=== PATIENT | female | born 1945 | race Caucasian/White ===

== ENCOUNTER 2017-02-18 06:57 | Emergency (ER) | payer OTHER ==
[2017-02-18] MEDS ORDERED: ZOFRAN INJ 4 MG VIAL ONE (07:00)
[2017-02-18] MEDS ORDERED: ZOFRAN INJ 4 MG VIAL IVP ONE (07:02)
[2017-02-18] MEDS ORDERED: ASPIRIN 81 MG CHEWTAB ONE (07:08)
[2017-02-18] MEDS ORDERED: ASPIRIN 81 MG CHEWTAB PO ONE (07:10)
[2017-02-18 07:15] VITALS: BP 140/65; BMI 22.4
--- NOTE | 2017-02-18 07:29 | DR.GENAD ---
HPI - PCP Primary Care Physician: DR. SU - Complaint/Symptoms Chief Complaint Doctors Comments: Patient complains of xiphoid and epigastric cramps and discomfort for the past three hours getting worst. States she is having something like a cramp in the upper abdomen and chest that feels dull that comes and goes. States she had a cardiac cath a few years ago before she had her gall bladder surgery and they said it was fine done by Dr. Belcher. She has a non productive cough but denies fever, chills, nausea or vomiting. She denies tobacco or alcohol usage. She denies any recent trauma. states she had similar pains like this few years ago and they told her its was due to gas. States she took Prilosec earlier but it did not help. She is having problems with her food sticking when she eat. States she is not hurting presently. Chief Complaint:: "I HAVE CHEST PAIN BUT I THINK IT'S GAS PAIN." Self Treatment fo Chief Complaint: ASA 81 MG, PRILOSCE - Nurses notes reviewed Nurses Notes Review: Yes - Source History Provided: Patient - Mode of Arrival Mode of Arrival: Ambulatory - Timing Onset of Chief Complaint: 02/18/17 Came on: Suddenly - Duration Duration: Intermittent How lon Duration: Hours - Location Location: epigastric and xiphoid area - Modifying Factors Worsens:: nothing Improves:: nothing PMH - PMH Past Medical History: Yes Past Medical History: GERD, Hyperthyroidism Past Medical History Comment: THYROID Past Surgical History: Yes Surgical History: Cholecystectomy, Hysterectomy - Family History History of Family Medical Conditions: Yes Family Medical History: Diabetes Mellitus, Cancer, Coronary Artery Disease, Hypertension - Social History Does patient currently use any type of tobacco product: No Have you used tobacco products in the last 12 months: No Type of Tobacco Use: None Does any household member use tobacco: No Alcohol Use: None Do you use any recreational Drugs:: No Lives With: Family Lives Where: Home - infectious screening In the last 2 months have you had wt loss of >10#?: NO Have you had fever, night sweats or hemotysis?: No Have you traveled outside the country in the last 6 months?: No ROS - Review of Systems Constitutional: No Symptoms Reported. negative: See HPI, Chills, Diaphoresis, Fever, Malaise, Weakness, Irritable, Fatigue, Loss of Appetite, Other Eyes: No Symptoms Reported ENTM: No Symptoms Reported, Nose Discharge, Nose Congestion Respiratoy: No Symptoms Reported, Non-Productive Cough. negative: See HPI, Productive Cough, Moist Cough, Dry Cough, Hacking Cough, Barking Cough, Brassy Cough, Orthopnea, Short of Breath, Stridor, Wheezing, Hemoptysis, Other Cardiovascular: No Symptoms Reported, Chest Pain. negative: See HPI, Edema, Palpitations, Syncope, Cyanosis, Skin Mottling, Other Gastrointestinal/Abdominal: No Symptoms Reported, Abdominal Pain, Nausea. negative: See HPI, Constipation, Diarrhea, Vomiting, Food Intolerance, Other Genitourinary: No Symptoms Reported Neurological: No Symptoms Reported Musculoskeletal: No Symptoms Reported Integumentary: No Symptoms Reported Endocrine: No Symptoms Reported. negative: See HPI, Excessive Sweating, Flushing, Intolerance to Cold, Intolerance to Heat, Increased Hunger, Increased Thirst, Increased Urine, Unexplained Weight Gain, Unexplained Weight Loss, Failure to Thrive, Decreased Appetite, Other Psychiatric: No Symptoms Reported PE - Vital Signs Vitals: Temperature 98.6 F Pulse Rate 61 Respiratory Rate 20 Blood Pressure 140/65 O2 Sat by Pulse Oximetry 100 - General Limitations: No Limitations General Appearance: Alert, In No Apparent Distress - Head Head Exam: Normal Inspection, Atraumatic, Normocephalic - Eyes Eye exam: Normal Appearance, PERRL, EOMI. negative: Scleral Icterus, Conjunctival Injection, Nystagmus, Miosis, Mydrasis, Periorbital Swelling, Periorbital Tenderness, Other - ENT ENT Exam: Normal Exam, Normal Oropharynx, Normal External Ear Exam, Mucous Membranes Moist, TM's Normal Bilaterally External Ear Exam: Normal External Inspection TM/Canal Exam: Bilateral Normal Nose Exam: Normal Nose Exam Mouth Exam: Normal Inspection. negative: Drooling, Trismus, Lip Swelling, Tongue Elevation, Tongue Swelling, Laceration, Other Throat Exam: Normal Inspection. negative: Tonsillar Erythema, Tonsillomegaly, Tonsillar Exudate, R Peritonsillar Mass, L Peritonsillar Mass, Muffled Voice, Other - Neck Neck Exam: Normal Inspection, Full ROM, Trachea Midline. negative: Tenderness, Meningismus, Lymphadenopathy, Thyromegaly, Other - Chest Chest Inspection: Normal Inspection, Symmetric Chest Wall Rise - Respiratory Respiratory Exam: Normal Lung Sounds Bilat Respiratory Exam: Bilateral Clear to Auscultation - Cardiovascular Cardiovascular Exam: Regular Rate, Normal Rhythm, Normal Heart Sounds. negative : Bradycardia, Tachycardia, Irregular Rhythm, Systolic Murmur, Diastolic Murmur , Rubs, Gallop, Clicks, JVD, +S1, +S2, +S3, +S4, Other - Abdominal Exam Abdominal Exam: Normal Inspection, Normal Bowel Sounds, Soft, Tenderness ( slight epigastric tenderness), Dimnished Bowel Sounds. negative: Distention, Guarding, Rebound, Rigidity, Hyperactive Bowel Sounds, Hypoactive Bowel Sounds, Organomegaly, Trauma, Incision, Ascites, Mass, Bruit, Pulsatile Mass, Hernia, Other Abdominal Tenderness: Epigastrium, Mild - Extremities Extremities Exam: Normal Inspection, Full ROM, Normal Capillary Refill. negative: Tenderness, Edema, Joint Swelling, Calf Tenderness, Other - Back Back Exam: Normal Inspection, Full ROM. negative: Tenderness, (R) CVA Tenderness, (L) CVA Tenderness, Muscle Spasm, Paraspinal Tenderness, Vertebral Tenderness, Rashes, (R) Sciatic Notch Tenderness, (L) Sciatic Notch Tendern, (R ) Straight Leg Raise, (L) Straight Leg Raise, Other - Neurologic Neurological Exam: Alert, Oriented X3, CN II-XII Intact, Reflexes Normal. negative: Normal Gait (gait not tested) - Psychiatric Psychiatric Exam: Normal Affect, Normal Mood - Skin Skin Exam: Warm, Dry, Intact, Normal Color ROR - Labs Reviewed Laboratory Results Reviewed?: Yes (all labs and x-ray results reviewed and discussed with patient) Result Diagrams: 02/18/17 07:00 02/18/17 07:00 Laboratory: WBC 9.2 X10^3/uL (3.6-10.0) 02/18/17 07:00 RBC 4.15 X10^6/uL (3.5-5.4) 02/18/17 07:00 Hgb 11.8 g/dL (12.0-16.0) L 02/18/17 07:00 Hct 35.7 % (36.0-47.0) L 02/18/17 07:00 MCV 86.1 fL (80.0-100.0) 02/18/17 07:00 MCH 28.3 pg (27.0-34.0) 02/18/17 07:00 MCHC 32.9 g/dL (33.0-35.0) L 02/18/17 07:00 RDW 15.7 % (11.6-16.5) 02/18/17 07:00 Plt Count 315 X10^3/uL (150.0-450.0) 02/18/17 07:00 MPV 7.4 fL (7.4-11.0) 02/18/17 07:00 Neut % 57.4 % (42.0-75.0) 02/18/17 07:00 Lymph % 26.2 % (21.0-51.0) 02/18/17 07:00 Nye % 8.0 % (0.0-13.0) 02/18/17 07:00 Eos % 7.4 % (0.9-2.9) H 02/18/17 07:00 Baso % 1.0 % (0.2-1.0) 02/18/17 07:00 Neut # 5.3 x10^3/uL (2.2-4.8) H 02/18/17 07:00 Lymph # 2.4 X10^3/uL (1.3-2.9) 02/18/17 07:00 Nye # 0.7 x10^3/uL (0.3-0.8) 02/18/17 07:00 Eos # 0.7 x10^3/uL (0.0-0.2) H 02/18/17 07:00 Baso # 0.1 X10^3/uL (0.0-0.1) 02/18/17 07:00 Absolute Nucleated RBC 0.0 /100WBC 02/18/17 07:00 INR Target Range - 02/18/17 07:00 INR 1.01 (0.8-1.3) 02/18/17 07:00 PTT 25.8 SECONDS (22.9-36.5) 02/18/17 07:00 PTT Comment - 02/18/17 07:00 D-Dimer 266 ng/mL (0-400) 02/18/17 07:00 Sodium 138 mmol/L (136-145) 02/18/17 07:00 Corrected Sodium TNP 02/18/17 07:00 Potassium 3.7 mmol/L (3.5-5.1) 02/18/17 07:00 Chloride 103 mmol/L (98-107) 02/18/17 07:00 Carbon Dioxide 25.8 mmol/L (21-32) 02/18/17 07:00 BUN 16 mg/dL (7-18) 02/18/17 07:00 Creatinine 0.82 mg/dL (0.55-1.02) 02/18/17 07:00 Est GFR (MDRD) Af Amer > 60 (>60) 02/18/17 07:00 Est GFR (MDRD) Non-Af > 60 (>60) 02/18/17 07:00 Glucose 100 mg/dL (65-99) H 02/18/17 07:00 Calcium 9.6 mg/dL (8.5-10.1) 02/18/17 07:00 Total Bilirubin 0.40 mg/dL (0.2-1.0) 02/18/17 07:00 AST 57 Units/L (15-37) H 02/18/17 07:00 ALT 35 Units/L (12-78) 02/18/17 07:00 Alkaline Phosphatase 69 Units/L (46-116) 02/18/17 07:00 Creatine Kinase 113 Units/L (26-192) 02/18/17 07:00 CK-MB (CK-2) 1.3 ng/mL (0-4.0) 02/18/17 07:00 CK/CKMB % Calc 1.2 % (<4) 02/18/17 07:00 Troponin I 0.06 ng/mL (0-1.5) 02/18/17 07:00 Total Protein 7.4 g/dL (6.4-8.2) 02/18/17 07:00 Amylase 136 Units/L (25-115) H 02/18/17 07:00 H. pylori IgG Antibody Negative (NEGATIVE) 02/18/17 07:00 - XRAY XRAY Interpreted by: Radiologist (CXR: Cardiomegaly without acute cardiopulmonary process observed.) - EKG Rate: 55 [place]: Normal Rhythm: NSR Block: None Hypertrophy: None ST: Normal, Nonsp (poor r-wave progression) - Diagnosis Discharge Problem: Chest pain, Dyspepsia, Cardiomegaly, prob pancreatitis - Discharge Plan Disposition: 01 HOME, SELF-CARE Condition: Stable - Follow ups/Referrals Follow ups/Referrals: BHANU SU [Primary Care Provider] - 3 days - Instructions Instructions: Peptic Ulcer, [id number], Chest Pain Observation, Anemia, Nonspecific, Hyperglycemia
[2017-02-18 07:32] LABS: BASOPHILS # (AUTO) 0.1 X10^3/uL (0.0-0.1); EOSINOPHILS # (AUTO) 0.7 x10^3/uL (0.0-0.2); EOSINOPHILS % (AUTO) 7.4 % (0.9-2.9); HEMATOCRIT 35.7 % (36.0-47.0); HEMOGLOBIN 11.8 g/dL (12.0-16.0); LYMPHOCYTES # (AUTO) 2.4 X10^3/uL (1.3-2.9); LYMPHOCYTES % (AUTO) 26.2 % (21.0-51.0); MEAN CORPUSCULAR HEMOGLOBIN 28.3 pg (27.0-34.0); MEAN CORPUSCULAR HGB CONC 32.9 g/dL (33.0-35.0); MEAN CORPUSCULAR VOLUME 86.1 fL (80.0-100.0); MEAN PLATELET VOLUME 7.4 fL (7.4-11.0); MONOCYTES # (AUTO) 0.7 x10^3/uL (0.3-0.8); NEUTROPHILS # (AUTO) 5.3 x10^3/uL (2.2-4.8); NEUTROPHILS % (AUTO) 57.4 % (42.0-75.0); PLATELET COUNT 315 X10^3/uL (150.0-450.0); RED BLOOD COUNT 4.15 X10^6/uL (3.5-5.4); RED CELL DISTRIBUTION WIDTH 15.7 % (11.6-16.5); WHITE BLOOD COUNT 9.2 X10^3/uL (3.6-10.0)
[2017-02-18] MEDS ORDERED: LEVSIN/MAALOX/LIDOC VISC PO ONE (07:32)
[2017-02-18 07:45] LABS: BLOOD UREA NITROGEN 16 mg/dL (7-18); CALCIUM 9.6 mg/dL (8.5-10.1); CARBON DIOXIDE 25.8 mmol/L (21-32); CHLORIDE 103 mmol/L (98-107); CREATININE 0.82 mg/dL (0.55-1.02); SODIUM 138 mmol/L (136-145); TROPONIN I 0.06 ng/mL (0-1.5); eGFR BLACK RACES > 60 (>60); eGFR NON BLACK RACES > 60 (>60)
[2017-02-18 07:48] LABS: ALANINE AMINOTRANSFERASE 35 Units/L (12-78); ALKALINE PHOSPHATASE 69 Units/L (46-116); AMYLASE 136 Units/L (25-115); ASPARTATE AMINO TRANSFERASE 57 Units/L (15-37); CKMB % 1.2 % (<4); CREATINE KINASE 113 Units/L (26-192); CREATINE KINASE MB 1.3 ng/mL (0-4.0); TOTAL PROTEIN 7.4 g/dL (6.4-8.2)
[2017-02-18] MEDS ORDERED: LEVSIN/MAALOX/LIDOC VISC ONE (07:56)
[2017-02-18 08:09] LABS: D DIMER 266 ng/mL (0-400)
--- NOTE | 2017-02-18 08:27 | RAD ---
HISTORY: Chest pain Study: Single view s chest. Comparison: None. Findings: The trachea is midline. The cardiac silhouette is enlarged with a tortuous thoracic aorta. The lung s are clear without focal infiltrate or effusion. The bony thorax is unremarkable. IMPRESSION: 1. Cardiomegaly without acute cardiopulmonary process observed. Reported By:
[2017-02-18 08:29] LABS: ALBUMIN 3.5 g/dL (3.4-5.0)
[2017-02-18 08:30] LABS: LIPASE 575 Units/L (73-393); MAGNESIUM 1.9 mg/dL (1.7-2.9)
== END 2017-02-18 09:09 | disposition home or self-care (01) ==
LOC: ER 07:07
DX: R07.89 Other chest pain (principal); R10.13 Epigastric pain; I51.7 Cardiomegaly
CPT/HCPCS: 36415; 71010; 80053; 82150; 82550; 82553; 83690; 83735; 84484; 85025; 85378; 85610; 85730; 86677; 93005; 93010; 96365; 96374; 99283; A4222; J2405

== ENCOUNTER → 2017-03-08 | Outpatient (CLI) | payer OTHER ==
[2017-02-18 07:15] VITALS: BP 140/65
[~2017-03-08] MED LIST: NS 100 ML IV 100 ML IV ONE
--- NOTE | 2017-03-08 10:40 | CT ---
CT abdomen and pelvis with contrast Indication: epigastric pain Comparison: None available Technique: Multiple axial images of the abdomen and pelvis were obtained from the lung bases to the pubic symphy sis after the administration of IV contrast. Coronal and sagittal reformatted images were also provi ded. Radiation dose reduction techniques were performed utilizing adjustment for MA/kVP based on patient body size. Findings: Several subpleural and pulmonary based nodules within the lung bases are noted for example an 11 mm n odular opacity within the medial aspect of the left lower lobe on axial image 6. No pleural effusion. No focal hepatic lesion is identified. There is very mild intrahepatic with moderate extrahepatic bi le duct dilatation without obstructing stone or mass identified. The spleen and pancreas are within n ormal limits. Adrenal glands and kidneys are also normal. Neither kidney demonstrates evidence of nep hrolithiasis or hydronephrosis. Upper GI tract demonstrates no evidence of mass or obstruction. The a ppendix is normal. Urinary bladder is unremarkable. No pelvic or adnexal mass. The rectum appears dif fusely thickened best seen on coronal image 33 and axial image 75. The remaining colon is unremarkabl e aside for scattered diverticulosis. The terminal ileum is normal. No pelvic or abdominal lymphadeno [place] or free fluid. Abdominal aorta is tortuous however normal in caliber. Review of bone windows de monstrates no acute osseous abnormality. Impression: 1. Increased fullness and suspected circumferential thickening of the rectum for which clinical corre lation is needed as an acute proctitis or underlying rectal neoplasm is not excluded. Given the tortu osity of the sigmoid colon and abnormal appearance of the rectosigmoid junction a mild rectal prolaps e is also a consideration. Depending on clinical findings correlation with proctoscopy/colonoscopy m ay be indicated. 2. Colonic diverticulosis without evidence of diverticulitis. 3. Mild intrahepatic with moderate extrahepatic bile duct dilatation to the level of the ampulla, thi s can be seen in patients who have had previous cholecystectomy; however correlation with cholestati c function test is recommended. 4. Multiple subpleural and pleural-based nodules are noted within the lung bases, these may represent sequela of previous infection/scarring however followup chest CT in 3 months is recommended to ensur e stability and exclude underlying pulmonary neoplasm or metastatic disease. Reported By:
[2017-03-08 11:47] LABS: STOOL FOR WBC POSITIVE (NEGATIVE)
[2017-03-08 11:48] LABS: CRYPTOSPORIDIUM PARVUM ANTIGEN NEGATIVE (NEGATIVE); GIARDIA LAMBLIA ANTIGEN NEGATIVE (NEGATIVE)
== END | disposition home or self-care (01) | DRG 440 ==
LOC: RAD 09:21
PROVIDERS: ATTEND Internal Medicine
DX: K85.90 Acute pancreatitis without necrosis or infection, unspecified (principal); R10.13 Epigastric pain; K57.30 Diverticulosis of large intestine without perforation or abscess without bleeding
CPT/HCPCS: 74177; 82270; 83630; 87045; 87328; 87329; 87336; 87338; 87427; 87493; 87899; A4222

== ENCOUNTER → 2017-04-16 | Outpatient (CLI) | payer OTHER ==
[2017-04-16 08:59] LABS: CREATININE 0.9 mg/dL (0.55-1.02)
--- NOTE | 2017-04-16 15:28 | MRI ---
Indication: Abnormal CT scan and biliary duct dilatation. Exam: MRI abdomen with contrast Routine multiplanar multi sequence imaging was performed through the abdomen before and after adminis tration of 16 cc of Omniscan. Thin-section targeted axial coronal images were obtained through the [facility] for an MRCP. Comparison: CT abdomen 03/08/2017. Findings: The liver and spleen are normal size and signal intensity. No focal lesion is seen. The gal lbladder has been removed. There is no intrahepatic biliary duct dilatation seen. There is slight pro minence of the central biliary ducts with moderate dilatation of the common bile duct proximally alfonso uring up to 1 cm which tapers distally to the ampulla . There is no obvious filling defect or mucosal regularity seen in the duct. The main pancreatic duct is visualized and appears normal caliber throu ghout the duct inserts adjacent to the ampulla. No obvious mass or inflammation is seen around the pa ncreas. The adrenals are normal. The kidneys are normal size with no hydronephrosis or renal stones a nd no masses. There is no adenopathy or ascites. The mesentery is unremarkable. The hepatic vasculatu re is unremarkable. Impression: Status post cholecystectomy with moderate dilatation of the common bile duct seen down to the ampulla which is probably postsurgical in etiology with no retained stone or filling defect seen. No acute intra-abdominal abnormality seen. Reported By:
== END ==
LOC: RAD 08:24
PROVIDERS: ATTEND Internal Medicine Gastroenterology
DX: R93.8 Abnormal findings on diagnostic imaging of other specified body structures (principal)
CPT/HCPCS: 36415; 74182; 82565; 84520

== ENCOUNTER 2018-07-31 12:17 | Observation (INO) ==
[2018-07-31] MEDS ORDERED: ZOFRAN INJ 4 MG VIAL IVP PRN (14:03)
--- NOTE | 2018-07-31 14:14 | DR.H&P ---
H&P - History & Physical for Day of: H&P Date: 07/31/18 - Chief Complaint Chief Complaint: fever, weakness, n/v/d - History of Present Illness History of Present Illness: 72 WF DIRECT ADMIT FROM DR BURNS OFFICE WITH FLU LIKE ILLNESS, N/V/D ONSET SUNDAY. PT STATES SHE WAS STARTED ON TAMIFLU AND ZPACK WITH IM ROCEPHIN AND DECADRON ON MODAY WITH NO IMPROVEMENT. PT IS VERY WEAK, DECREASED URINATION. - Past Medical History Past Medical History: GERD, Hyperthyroidism - Past Surgical History Surgical History: Cholecystectomy, Hysterectomy - Family History Family Medical History: Diabetes Mellitus, Cancer, Coronary Artery Disease, Hypertension - Social History Does patient currently use any type of tobacco product: No Have you used tobacco products in the last 12 months: No Type of Tobacco Use: None Does any household member use tobacco: No Alcohol Use: None Drug Use: None - Medications Home Medications: diphenhydramine [From Benadryl] Allergy (Verified 02/18/17 07:16) CONTINUE taking the following medications azithromycin 250 mg PO DAILY 07/31/18 [History] folic acid 0.8 mg PO QDAY 07/31/18 [History] levothyroxine 50 mcg PO DAILY 07/31/18 [History] olmesartan-hydrochlorothiazide 1 tab PO DAILY 07/31/18 [History] oseltamivir 75 mg PO BID 07/31/18 [History] pantoprazole 40 mg PO DAILY 07/31/18 [History] - Review of Systems Constitutional: Fever, Chills, Weakness, Malaise Eyes: No Symptoms Reported ENT: No Symptoms Reported Respiratory: Cough Cardiovascular: No Symptoms Reported Gastrointestinal: Nausea, Vomiting, Diarrhea Genitourinary: No Symptoms Reported Musculoskeletal: Back Pain Skin: No Symptoms Reported Neurological: Weakness - Physical Exam Vital Signs: Blood Pressure 140/65 Oriented: Normal Eyes: Normal Ear: Normal Nose: Normal Throat: Normal Respiratory: RLL Diminished, LLL Diminished Cardiovascular: Normal : Normal Auscultation: Bowel Sounds: Normal Palpation: Normal Tenderness: Normal Skin: Normal Musculoskeletal: Normal Psychiatric: Normal Mood Description: Calm Speech Pattern: Clear - Assessment/Plan (1) Gastroenteritis Status: Acute Plan: ADMIT, IV HYDRATION. CBC CMP CXR ON ADMISSION. FLU SWAB, NAUSEA CONTROL, IV ROCEPHIN (2) Dehydration Status: Acute (3) Influenza-like illness Status: Acute - Allergies Allergies/Adverse Reactions: Allergies Allergy/AdvReac Type Severity Reaction Status Date / Time diphenhydramine Allergy Verified 02/18/17 07:16 [From Catia]
[2018-07-31 14:35] LABS: BASOPHILS % (AUTO) 0.5 % (0.2-1.0); EOSINOPHILS # (AUTO) 0.1 x10^3/uL (0.0-0.2); EOSINOPHILS % (AUTO) 1.1 % (0.9-2.9); HEMATOCRIT 38.2 % (36.0-47.0); HEMOGLOBIN 12.7 g/dL (12.0-16.0); LYMPHOCYTES # (AUTO) 1.8 X10^3/uL (1.3-2.9); LYMPHOCYTES % (AUTO) 30.1 % (21.0-51.0); MEAN CORPUSCULAR HEMOGLOBIN 28.3 pg (27.0-34.0); MEAN CORPUSCULAR HGB CONC 33.4 g/dL (33.0-35.0); MEAN CORPUSCULAR VOLUME 84.7 fL (80.0-100.0); MEAN PLATELET VOLUME 7.5 fL (7.4-11.0); MONOCYTES # (AUTO) 0.7 x10^3/uL (0.3-0.8); MONOCYTES % (AUTO) 11.3 % (0.0-13.0); NEUTROPHILS # (AUTO) 3.5 x10^3/uL (2.2-4.8); PLATELET COUNT 340 X10^3/uL (150.0-450.0); RED BLOOD COUNT 4.51 X10^6/uL (3.5-5.4); RED CELL DISTRIBUTION WIDTH 15.2 % (11.6-16.5); WHITE BLOOD COUNT 6.1 X10^3/uL (3.6-10.0)
[2018-07-31 14:40] LABS: BLOOD UREA NITROGEN 8 mg/dL (7-18); CALCIUM 9.3 mg/dL (8.5-10.1); CHLORIDE 93 mmol/L (98-107); CREATININE 0.74 mg/dL (0.55-1.02); SODIUM 129 mmol/L (136-145); eGFR NON BLACK RACES > 60 (>60)
[2018-07-31 14:44] LABS: ALANINE AMINOTRANSFERASE 63 Units/L (12-78); ALBUMIN 3.3 g/dL (3.4-5.0); ALKALINE PHOSPHATASE 77 Units/L (46-116); ASPARTATE AMINO TRANSFERASE 56 Units/L (15-37); COR CA(FOR HYPOALB) 9.9 mg/dL (8.5-10.1); MAGNESIUM 1.6 mg/dL (1.7-2.9); TOTAL PROTEIN 7.5 g/dL (6.4-8.2)
[2018-07-31] MEDS: NS 1000 ML 1,000 ML IV SCH ×2 (14:45→23:24)
[2018-07-31] MEDS: ROCEPHIN VIAL 1 GRAM IVP SCH (14:45)
[2018-07-31] MEDS: PROTONIX INJ 40 MG VIAL IVP SCH (14:45)
[2018-07-31] MEDS ORDERED: MICRO K EXTEN CAP 10 MEQ PO PRN (14:54)
[2018-07-31] MEDS ORDERED: POTASSIUM CHL 40 MEQ/NS 0.45% 500 ML IV PRN (14:54)
[2018-07-31] MEDS ORDERED: K-RIDER 10 MEQ/NS 100 ML 10 MEQ/100 ML BAG IV PRN (14:54)
[2018-07-31] MEDS ORDERED: POTASSIUM CHL 60 MEQ/NS 0.45% 500 ML IV PRN (14:54)
[2018-07-31] MEDS ORDERED: KLOR-CON PO PRN (14:54)
[2018-07-31] MEDS ORDERED: POTASSIUM CHLORIDE LIQ 20 MEQ UDC PO PRN (14:54)
--- NOTE | 2018-07-31 15:14 | RAD ---
HISTORY: Fever, weakness, cough Study: Single-view chest Comparison: 02/18/2017. Findings: Trachea is. Heart size is upper normal with aortic uncoiling. There is hyperinflation of the lungs with increased interstitial markings bilaterally. Findings have the appearance of COPD. No infiltrate, CHF, pleural fluid or pneumothorax is seen. Osseous structures are intact. IMPRESSION: Hypertensive configuration. Findings likely representing COPD. No consolidation is seen Reported By:
[2018-07-31 16:44] LABS: BILIRUBIN,URINE NEGATIVE (NEGATIVE); BLOOD/HEMOGLOBIN,URINE NEGATIVE (NEGATIVE); GLUCOSE, URINE NEGATIVE (NEGATIVE); KETONES,URINE NEGATIVE (NEGATIVE); LEUKOCYTE ESTERASE ,URINE NEGATIVE (NEGATIVE); NITRITES,URINE NEGATIVE (NEGATIVE); PROTEIN,URINE NEGATIVE (NEGATIVE); UROBILINOGEN,URINE NORMAL (NORMAL)
[2018-07-31 16:50] LABS: APPEARANCE,URINE CLEAR (CLEAR); COLOR,URINE PALE YELLOW (YELLOW)
[2018-07-31] MEDS: MAGNESIUM SULFATE 1 GRAM/100 mL PREMIX 1 GM/100 ML BAG IV PRN ×2 (17:04→18:15)
[2018-07-31] MEDS: K-DUR TAB 20 MEQ PO PRN ×2 (17:36→22:23)
[2018-07-31 19:59] LABS: STOOL FOR WBC NEGATIVE (NEGATIVE)
[2018-07-31] MEDS: TAMIFLU PO SCH (20:50)
[2018-08-01 06:28] LABS: BASOPHILS % (AUTO) 0.7 % (0.2-1.0); EOSINOPHILS # (AUTO) 0.1 x10^3/uL (0.0-0.2); EOSINOPHILS % (AUTO) 2.7 % (0.9-2.9); HEMATOCRIT 36.1 % (36.0-47.0); LYMPHOCYTES # (AUTO) 1.9 X10^3/uL (1.3-2.9); LYMPHOCYTES % (AUTO) 44.5 % (21.0-51.0); MEAN CORPUSCULAR HEMOGLOBIN 28.3 pg (27.0-34.0); MEAN CORPUSCULAR HGB CONC 33.3 g/dL (33.0-35.0); MEAN PLATELET VOLUME 7.5 fL (7.4-11.0); MONOCYTES # (AUTO) 0.6 x10^3/uL (0.3-0.8); MONOCYTES % (AUTO) 15.2 % (0.0-13.0); NEUTROPHILS # (AUTO) 1.5 x10^3/uL (2.2-4.8); NEUTROPHILS % (AUTO) 36.9 % (42.0-75.0); PLATELET COUNT 322 X10^3/uL (150.0-450.0); RED BLOOD COUNT 4.25 X10^6/uL (3.5-5.4); RED CELL DISTRIBUTION WIDTH 15.3 % (11.6-16.5); WHITE BLOOD COUNT 4.2 X10^3/uL (3.6-10.0)
[2018-08-01 07:28] LABS: ALANINE AMINOTRANSFERASE 54 Units/L (12-78); ALBUMIN 2.9 g/dL (3.4-5.0); ALKALINE PHOSPHATASE 64 Units/L (46-116); ASPARTATE AMINO TRANSFERASE 46 Units/L (15-37); BLOOD UREA NITROGEN 5 mg/dL (7-18); CALCIUM 9.1 mg/dL (8.5-10.1); CARBON DIOXIDE 23.5 mmol/L (21-32); CHLORIDE 104 mmol/L (98-107); CREATININE 0.75 mg/dL (0.55-1.02); MAGNESIUM 2.1 mg/dL (1.7-2.9); SODIUM 136 mmol/L (136-145); TOTAL PROTEIN 6.6 g/dL (6.4-8.2); eGFR NON BLACK RACES > 60 (>60)
[2018-08-01 08:07] VITALS: BMI 22.8
[2018-08-01] MEDS: TAMIFLU PO SCH ×2 (09:06→20:53)
[2018-08-01] MEDS: NS 1000 ML 1,000 ML IV SCH ×3 (09:06→22:21)
[2018-08-01] MEDS: ROCEPHIN VIAL 1 GRAM IVP SCH (09:06)
[2018-08-01] MEDS: PROTONIX INJ 40 MG VIAL IVP SCH (09:07)
[2018-08-01] MEDS: TUSSIONEX PENNKINETIC SUSP PO SCH ×2 (12:00→22:21)
[2018-08-01] MEDS: LOVENOX INJ 40 MG SYR SC SCH (16:45)
[2018-08-02 05:19] LABS: BASOPHILS % (AUTO) 0.8 % (0.2-1.0); EOSINOPHILS # (AUTO) 0.3 x10^3/uL (0.0-0.2); HEMATOCRIT 32.6 % (36.0-47.0); HEMOGLOBIN 10.7 g/dL (12.0-16.0); LYMPHOCYTES # (AUTO) 2.2 X10^3/uL (1.3-2.9); LYMPHOCYTES % (AUTO) 43.8 % (21.0-51.0); MEAN CORPUSCULAR HEMOGLOBIN 28.6 pg (27.0-34.0); MEAN CORPUSCULAR HGB CONC 32.9 g/dL (33.0-35.0); MEAN CORPUSCULAR VOLUME 86.9 fL (80.0-100.0); MEAN PLATELET VOLUME 7.4 fL (7.4-11.0); MONOCYTES # (AUTO) 0.5 x10^3/uL (0.3-0.8); MONOCYTES % (AUTO) 10.8 % (0.0-13.0); NEUTROPHILS # (AUTO) 1.9 x10^3/uL (2.2-4.8); NEUTROPHILS % (AUTO) 38.6 % (42.0-75.0); PLATELET COUNT 321 X10^3/uL (150.0-450.0); RED BLOOD COUNT 3.75 X10^6/uL (3.5-5.4); RED CELL DISTRIBUTION WIDTH 15.5 % (11.6-16.5)
[2018-08-02 05:29] LABS: ALANINE AMINOTRANSFERASE 44 Units/L (12-78); ALBUMIN 2.5 g/dL (3.4-5.0); ALKALINE PHOSPHATASE 61 Units/L (46-116); ASPARTATE AMINO TRANSFERASE 36 Units/L (15-37); BLOOD UREA NITROGEN 6 mg/dL (7-18); CALCIUM 8.2 mg/dL (8.5-10.1); CARBON DIOXIDE 23.2 mmol/L (21-32); CHLORIDE 107 mmol/L (98-107); COR CA(FOR HYPOALB) 9.4 mg/dL (8.5-10.1); CREATININE 0.73 mg/dL (0.55-1.02); SODIUM 137 mmol/L (136-145); TOTAL PROTEIN 5.8 g/dL (6.4-8.2); eGFR NON BLACK RACES > 60 (>60)
[2018-08-02] MEDS: K-DUR TAB 20 MEQ PO PRN (05:45)
[2018-08-02] MEDS: LOVENOX INJ 40 MG SYR SC SCH (09:11)
[2018-08-02] MEDS: PROTONIX INJ 40 MG VIAL IVP SCH (09:12)
[2018-08-02] MEDS: ROCEPHIN VIAL 1 GRAM IVP SCH (09:12)
[2018-08-02] MEDS: TAMIFLU PO SCH (09:21)
[2018-08-02] MEDS: NS 1000 ML 1,000 ML IV SCH (09:21)
[2018-08-02 12:10] VITALS: BP 171/78
--- NOTE | 2018-08-02 13:49 | PCM.DCPLAN ---
Discharge Summary - Admission Date Date of Admission: 07/31/18 - Discharge Date Discharge Date: 08/02/18 - Admission Diagnoses (1) Gastroenteritis Status: Acute (2) Dehydration Status: Acute (3) Influenza-like illness Status: Acute - Discharge Diagnoses Discharge Diagnosis: ACUTE GASTROENTERITIS WITH FLU A HTN - Discharge Medications Discharge Medications: Home Medication List azithromycin 250 mg PO DAILY 07/31/18 [History] folic acid 0.8 mg PO QDAY 07/31/18 [History] levothyroxine 50 mcg PO DAILY 07/31/18 [History] olmesartan-hydrochlorothiazide 1 tab PO DAILY 07/31/18 [History] oseltamivir 75 mg PO BID 07/31/18 [History] pantoprazole 40 mg PO DAILY 07/31/18 [History] fluconazole [Diflucan] 100 mg PO QDAY #3 tab 08/02/18 [Rx] Prescriptions: fluconazole [Diflucan] CASSIDY WILLIAMSON - Hospital Course Vital Signs: Temperature 97.8 F Pulse Rate [Right Brachial] 58 Pulse Rate [Left Brachial] 57 Respiratory Rate 20 Blood Pressure [Right Arm] 171/78 Blood Pressure [Left Arm] 132/61 Blood Pressure 140/65 O2 Sat by Pulse Oximetry 97 Latest Lab Results: Laboratory Last Values WBC 5.0 X10^3/uL (3.6-10.0) 08/02/18 04:52 RBC 3.75 X10^6/uL (3.5-5.4) 08/02/18 04:52 Hgb 10.7 g/dL (12.0-16.0) L 08/02/18 04:52 Hct 32.6 % (36.0-47.0) L 08/02/18 04:52 MCV 86.9 fL (80.0-100.0) 08/02/18 04:52 MCH 28.6 pg (27.0-34.0) 08/02/18 04:52 MCHC 32.9 g/dL (33.0-35.0) L 08/02/18 04:52 RDW 15.5 % (11.6-16.5) 08/02/18 04:52 Plt Count 321 X10^3/uL (150.0-450.0) 08/02/18 04:52 MPV 7.4 fL (7.4-11.0) 08/02/18 04:52 Neut % (Auto) 38.6 % (42.0-75.0) L 08/02/18 04:52 Lymph % (Auto) 43.8 % (21.0-51.0) 08/02/18 04:52 [place] % (Auto) 10.8 % (0.0-13.0) 08/02/18 04:52 Eos % (Auto) 6.0 % (0.9-2.9) H 08/02/18 04:52 Baso % (Auto) 0.8 % (0.2-1.0) 08/02/18 04:52 Neut # (Auto) 1.9 x10^3/uL (2.2-4.8) L 08/02/18 04:52 Lymph # (Auto) 2.2 X10^3/uL (1.3-2.9) 08/02/18 04:52 [place] # (Auto) 0.5 x10^3/uL (0.3-0.8) 08/02/18 04:52 Eos # (Auto) 0.3 x10^3/uL (0.0-0.2) H 08/02/18 04:52 Baso # (Auto) 0.0 X10^3/uL (0.0-0.1) 08/02/18 04:52 Absolute Nucleated RBC 0.1 /100WBC 08/02/18 04:52 Sodium 137 mmol/L (136-145) 08/02/18 04:52 Corrected Sodium TNP 08/02/18 04:52 Potassium 3.4 mmol/L (3.5-5.1) L 08/02/18 04:52 Chloride 107 mmol/L (98-107) 08/02/18 04:52 Carbon Dioxide 23.2 mmol/L (21-32) 08/02/18 04:52 BUN 6 mg/dL (7-18) L 08/02/18 04:52 Creatinine 0.73 mg/dL (0.55-1.02) 08/02/18 04:52 Est GFR (MDRD) Af Amer > 60 (>60) 08/02/18 04:52 Est GFR (MDRD) Non-Af > 60 (>60) 08/02/18 04:52 Glucose 83 mg/dL (65-99) 08/02/18 04:52 Calcium 8.2 mg/dL (8.5-10.1) L 08/02/18 04:52 Corrected Calcium 9.4 mg/dL (8.5-10.1) 08/02/18 04:52 Magnesium 2.1 mg/dL (1.7-2.9) 08/01/18 05:20 Total Bilirubin 0.30 mg/dL (0.2-1.0) 08/02/18 04:52 AST 36 Units/L (15-37) 08/02/18 04:52 ALT 44 Units/L (12-78) 08/02/18 04:52 Alkaline Phosphatase 61 Units/L (46-116) 08/02/18 04:52 Total Protein 5.8 g/dL (6.4-8.2) L 08/02/18 04:52 Albumin 2.5 g/dL (3.4-5.0) L 08/02/18 04:52 Globulin 3.3 g/dL (2.5-4.5) 08/02/18 04:52 Albumin/Globulin Ratio 0.8 Ratio (1.1-2.1) L 08/02/18 04:52 Specimen Type Clean catch urine 07/31/18 16:36 Urine Color Pale yellow (YELLOW) 07/31/18 16:36 Urine Appearance Clear (CLEAR) 07/31/18 16:36 Urine pH 5.0 (5.0 - 8.0) 07/31/18 16:36 Ur Specific [place] 1.010 (1.000-1.030) 07/31/18 16:36 Urine Protein Negative (NEGATIVE) 07/31/18 16:36 Urine Glucose (UA) Negative (NEGATIVE) 07/31/18 16:36 Urine Ketones Negative (NEGATIVE) 07/31/18 16:36 Urine Occult Blood Negative (NEGATIVE) 07/31/18 16:36 Urine Nitrite Negative (NEGATIVE) 07/31/18 16:36 Urine Bilirubin Negative (NEGATIVE) 07/31/18 16:36 Urine Urobilinogen Normal (NORMAL) 07/31/18 16:36 Ur Leukocyte Esterase Negative (NEGATIVE) 07/31/18 16:36 Stool Description 100g brn mucoid lqd 07/31/18 19:20 Stl Occult Blood (IFOB) Negative (NEGATIVE) 07/31/18 19:20 Stool for White Cells Negative (NEGATIVE) 07/31/18 19:20 Stl C. diff Tox B Gene Negative (NEGATIVE) 07/31/18 19:20 Stl C. diff [id number] Negative (NEGATIVE) 07/31/18 19:20 Influenza Type A (PCR) Positive (NEGATIVE) A 07/31/18 19:20 Influenza Type B (PCR) Negative (NEGATIVE) 07/31/18 19:20 Hospital Course: Mrs. Rahman is a 72-year-old white female who was admitted one day ago with bronchitis, dehydration, and positive for influenza A. The patient had been taking Tamiflu and Z-Hunter on an outpatient basis, as well as had outpatient IM injections of steroids and Rocephin. The patients sodium was 129 on admission, it is up to 136 this morning with a potassium of 3 on admission, improved to 4 on day 2. Pt na normal this am at 137. pt states she feels much better this am with resolution of muscle cramps since hydration. pt allowed to dc home on continuation for tamiflu and zithromax and diflucan for yeast in stool. pt instructed to return to er if condition worsens and follow up with dr su next week. - Discharge Plan Disposition: 01 HOME, SELF-CARE Condition: Stable Prescriptions: fluconazole [Diflucan] 100 mg PO QDAY #3 tab - Follow ups/Referrals Follow ups/Referrals: BHANU SU [Primary Care Provider] - 08/07/18 10:15 am - Instructions Instructions: Influenza, Adult, [id number], Weakness, [id number], Nausea and Vomiting, Adult, [id number], Dehydration, Adult, [id number]-[id number], Rehydration, Adult Forms: Patient Portal
== END 2018-08-02 12:40 | disposition home or self-care (01) ==
LOC: MED/SURG
PROVIDERS: ADMIT Internal Medicine; ATTEND Internal Medicine
DX: I10 Essential (primary) hypertension; E86.0 Dehydration; J10.1 Influenza due to other identified influenza virus with other respiratory manifestations; R19.7 Diarrhea, unspecified; R11.2 Nausea with vomiting, unspecified; R53.1 Weakness; K52.89 Other specified noninfective gastroenteritis and colitis; K21.9 Gastro-esophageal reflux disease without esophagitis; R42 Dizziness and giddiness
CPT/HCPCS: 36415; 71010; 71045; 80053; 81003; 82270; 83630; 83735; 84132; 85025; 87045; 87427; 87449; 87493; 87502; 87899; 96367; 96374; A4222; C9113; G9035; G0378; J0696; J1650; J2405; J3475; J7030

== ENCOUNTER 2018-08-29 11:53 | Observation (INO) ==
[2018-08-29 12:46] VITALS: BMI 22.4
--- NOTE | 2018-08-29 13:40 | DR.H&P ---
H&P - History & Physical for Day of: H&P Date: 08/29/18 - Chief Complaint Chief Complaint: SOB, CHE, CHEST TIGHTNESS - History of Present Illness History of Present Illness: 73 WF DIRECT ADMIT FROM DR BURNS OFFICE WITH CO SOB, WORSE ON EXERTION. PT STATES SHE HAS FELT WEAKER IN HER LEGS AND CO CANNT WALK >10FT WITHOUT FEELING "GIVE OUT". PT HAS PMH OF HTN. PT STATES SHE HAD CARDIAC CATH > 5-10YEARS AGO WITHOUT ANY DISEASE. PT CO CHEST TIGHTNESS, WORSE LAST PM AND HER BP HAS BEEN HIGH FOR SEVERAL WEEKS. PT INCREASED BENICAR FROM 20 TO 40MG WITHOUT IMPROVEMENT. PT HAD EKG CHANGES IN OFFICE COMPARED WITH JUNE EKG AND ELEVATED CPK, CKMB. PLAN TO ADMIT, SERIAL CE AND EKG, BP CONTROL. - Past Medical History Past Medical History: GERD, Hyperthyroidism - Past Surgical History Surgical History: Cholecystectomy, Hysterectomy - Family History Family Medical History: Diabetes Mellitus, Cancer, Coronary Artery Disease, Hypertension - Social History Does patient currently use any type of tobacco product: No Have you used tobacco products in the last 12 months: No Type of Tobacco Use: None Alcohol Use: None Drug Use: None - Medications Home Medications: diphenhydramine [From Benadryl] Allergy (Verified 02/18/17 07:16) CONTINUE taking the following medications alprazolam 1 tab PO DAILY PRN 08/29/18 [History] potassium chloride 10 meq PO DAILY 08/29/18 [History] - Review of Systems Constitutional: Weakness Eyes: No Symptoms Reported ENT: No Symptoms Reported Respiratory: Shortness of Breath, SOB with Excertion Cardiovascular: Chest Pain, Edema Gastrointestinal: No Symptoms Reported Genitourinary: No Symptoms Reported Musculoskeletal: No Symptoms Reported Skin: No Symptoms Reported Neurological: Weakness - Physical Exam Vital Signs: Temperature 98 F Pulse Rate [Left Brachial] 68 Respiratory Rate 20 Blood Pressure [Right Arm] 171/78 Blood Pressure [Left Arm] 173/79 Blood Pressure 171/78 O2 Sat by Pulse Oximetry 96 Oriented: Normal Eyes: Normal Ear: Normal, Left Throat: Normal Respiratory: Clear Throughout Cardiovascular: Normal, Edema : Normal Auscultation: Bowel Sounds: Normal Palpation: Normal Skin: Normal Musculoskeletal: Right, Left, Leg, Tender Psychiatric: Anxiety Affect: Anxious Speech Pattern: Clear, Appropriate - Assessment/Plan (1) SOB (shortness of breath) Status: Acute Plan: ADMIT, SERIAL CE AND EKG. SUPPLEMENTAL O2. BP CONTROL, ASPIRIN THERAPY, ABG ON ADMISSION. CXR, ADMISSION LABS (2) Hypertension Status: Acute (3) Chest pain Status: Acute - Allergies Allergies/Adverse Reactions: Allergies Allergy/AdvReac Type Severity Reaction Status Date / Time diphenhydramine Allergy Verified 02/18/17 07:16 [From Benadryl]
[2018-08-29 13:58] LABS: ABG ALLEN TEST POS; ABG BASE EXCESS 4.1 mmol/L (-2.0-2.0); ABG HCO3 28.5 mmol/L (22-26)
[2018-08-29 14:02] LABS: BASOPHILS # (AUTO) 0.1 X10^3/uL (0.0-0.1); BASOPHILS % (AUTO) 1.1 % (0.2-1.0); EOSINOPHILS # (AUTO) 0.4 x10^3/uL (0.0-0.2); EOSINOPHILS % (AUTO) 6.7 % (0.9-2.9); HEMATOCRIT 34.3 % (36.0-47.0); HEMOGLOBIN 11.3 g/dL (12.0-16.0); LYMPHOCYTES # (AUTO) 1.6 X10^3/uL (1.3-2.9); LYMPHOCYTES % (AUTO) 28.6 % (21.0-51.0); MEAN CORPUSCULAR HEMOGLOBIN 28.6 pg (27.0-34.0); MEAN CORPUSCULAR HGB CONC 32.9 g/dL (33.0-35.0); MEAN PLATELET VOLUME 7.4 fL (7.4-11.0); MONOCYTES # (AUTO) 0.5 x10^3/uL (0.3-0.8); MONOCYTES % (AUTO) 9.2 % (0.0-13.0); NEUTROPHILS # (AUTO) 3.1 x10^3/uL (2.2-4.8); NEUTROPHILS % (AUTO) 54.4 % (42.0-75.0); PLATELET COUNT 328 X10^3/uL (150.0-450.0); RED BLOOD COUNT 3.94 X10^6/uL (3.5-5.4); RED CELL DISTRIBUTION WIDTH 16.2 % (11.6-16.5); WHITE BLOOD COUNT 5.7 X10^3/uL (3.6-10.0)
[2018-08-29] MEDS: PROTONIX INJ 40 MG VIAL IVP SCH (14:12)
[2018-08-29] MEDS: ASPIRIN PO SCH (14:12)
[2018-08-29 14:15] LABS: ALANINE AMINOTRANSFERASE 40 Units/L (12-78); ALBUMIN 3.2 g/dL (3.4-5.0); ALKALINE PHOSPHATASE 66 Units/L (46-116); ASPARTATE AMINO TRANSFERASE 39 Units/L (15-37); BLOOD UREA NITROGEN 9 mg/dL (7-18); CALCIUM 8.9 mg/dL (8.5-10.1); CARBON DIOXIDE 24.8 mmol/L (21-32); CHLORIDE 107 mmol/L (98-107); COR CA(FOR HYPOALB) 9.5 mg/dL (8.5-10.1); CREATININE 0.68 mg/dL (0.55-1.02); MAGNESIUM 1.9 mg/dL (1.7-2.9); SODIUM 141 mmol/L (136-145); TOTAL PROTEIN 6.7 g/dL (6.4-8.2); eGFR NON BLACK RACES > 60 (>60)
[2018-08-29 14:48] LABS: CKMB % 4.4 % (<4); TROPONIN I 0.02 ng/mL (0-1.5)
[2018-08-29 14:55] LABS: CREATINE KINASE MB 21.8 ng/mL (0-4.0)
[2018-08-29 16:23] LABS: BILIRUBIN,URINE NEGATIVE (NEGATIVE); BLOOD/HEMOGLOBIN,URINE 1+ (NEGATIVE); GLUCOSE, URINE NEGATIVE (NEGATIVE); KETONES,URINE NEGATIVE (NEGATIVE); LEUKOCYTE ESTERASE ,URINE NEGATIVE (NEGATIVE); NITRITES,URINE NEGATIVE (NEGATIVE); PROTEIN,URINE NEGATIVE (NEGATIVE); UROBILINOGEN,URINE NORMAL (NORMAL)
[2018-08-29 16:28] LABS: APPEARANCE,URINE CLEAR (CLEAR); BACTERIA,URINE TRACE /HPF (NEGATIVE); COLOR,URINE YELLOW (YELLOW); RBC,URINE 0-2 /HPF (NONE SEEN); SQUAMOUS EPITHELIAL CELL,UR FEW /HPF (NEGATIVE)
[2018-08-29 20:45] LABS: CKMB % 4.2 % (<4); TROPONIN I 0.02 ng/mL (0-1.5)
[2018-08-29 20:48] LABS: CREATINE KINASE MB 19.6 ng/mL (0-4.0)
--- NOTE | 2018-08-29 22:36 | RAD ---
Chest AP portable Indication: Dyspnea Comparison: 08/28/2018 Findings: There is no pneumothorax or effusion. There is no dense consolidation. Monitoring leads obscure detail. Cardiomegaly is noted. COPD changes noted. Impression: Cardiomegaly and COPD without new acute chest process. Reported By:
[2018-08-30 03:36] LABS: CKMB % 3.7 % (<4); TROPONIN I 0.02 ng/mL (0-1.5)
[2018-08-30 03:40] LABS: CREATINE KINASE MB 14.3 ng/mL (0-4.0)
[2018-08-30 05:21] LABS: BASOPHILS # (AUTO) 0.1 X10^3/uL (0.0-0.1); EOSINOPHILS # (AUTO) 0.4 x10^3/uL (0.0-0.2); EOSINOPHILS % (AUTO) 7.1 % (0.9-2.9); HEMATOCRIT 34.3 % (36.0-47.0); HEMOGLOBIN 11.1 g/dL (12.0-16.0); LYMPHOCYTES # (AUTO) 1.8 X10^3/uL (1.3-2.9); LYMPHOCYTES % (AUTO) 29.5 % (21.0-51.0); MEAN CORPUSCULAR HEMOGLOBIN 28.7 pg (27.0-34.0); MEAN CORPUSCULAR HGB CONC 32.4 g/dL (33.0-35.0); MEAN CORPUSCULAR VOLUME 88.4 fL (80.0-100.0); MONOCYTES # (AUTO) 0.6 x10^3/uL (0.3-0.8); MONOCYTES % (AUTO) 9.8 % (0.0-13.0); NEUTROPHILS # (AUTO) 3.2 x10^3/uL (2.2-4.8); NEUTROPHILS % (AUTO) 52.6 % (42.0-75.0); PLATELET COUNT 339 X10^3/uL (150.0-450.0); RED BLOOD COUNT 3.88 X10^6/uL (3.5-5.4); RED CELL DISTRIBUTION WIDTH 16.3 % (11.6-16.5)
[2018-08-30 05:41] LABS: ALANINE AMINOTRANSFERASE 36 Units/L (12-78); ALKALINE PHOSPHATASE 59 Units/L (46-116); ASPARTATE AMINO TRANSFERASE 38 Units/L (15-37); BLOOD UREA NITROGEN 9 mg/dL (7-18); CALCIUM 8.9 mg/dL (8.5-10.1); CARBON DIOXIDE 25.3 mmol/L (21-32); CHLORIDE 107 mmol/L (98-107); CHOL/HDL RATIO 2.7 (0.0-5.0); CHOLESTEROL 104 mg/dL (0-200); COR CA(FOR HYPOALB) 9.7 mg/dL (8.5-10.1); CREATININE 0.73 mg/dL (0.55-1.02); HDL CHOLESTEROL 39 mg/dL (40-60); SODIUM 141 mmol/L (136-145); TOTAL PROTEIN 6.6 g/dL (6.4-8.2); TRIGLYCERIDES 73 mg/dL (0-150); eGFR NON BLACK RACES > 60 (>60)
[2018-08-30] MEDS: ASPIRIN PO SCH (08:31)
[2018-08-30] MEDS: PROTONIX INJ 40 MG VIAL IVP SCH (08:32)
--- NOTE | 2018-08-30 10:10 | CT ---
History: Shortness of breath and chest pain Exam: CTA chest Comparison: None Technique: Axial spiral images were obtained from the level above the clavicles through the adrenals after administration of IV contrast. Coronal and sagittal 3D MIP reconstructions were performed. Automated dose control was utilized. Findings: The thyroid gland is unremarkable. There is moderate calcified plaque throughout the aorta and there is moderate aneurysmal dilatation of the ascending aorta beginning just above the aortic valve and extending into the arch . The largest transverse dimension measuring 5.3 cm. No obvious dissection can be seen. The pulmonary arteries are well opacified with no filling defect or vessel cut off. The visualized upper abdomen is unremarkable. There is no mediastinal mass or adenopathy. There is mild biapical pleural thickening and scarring extending into the upper lobes inferiorly. There is hazy subpleural opacity along the lung bases posteriorly which is more prominent on the left. No effusion is seen and there is no pulmonary nodule or mass. There are moderate degenerative changes in the thoracic spine with associated moderate scoliosis. IMPRESSION: No evidence of a pulmonary embolus. Mild atherosclerotic plaque scattered throughout the aorta with moderate aneurysmal dilatation of the ascending aorta measuring up to 5.3 cm with no obvious dissection. Recommend continued follow-up. No mediastinal mass or adenopathy. COPD with mild bibasilar atelectasis vs early infiltrates or scarring , recommend follow-up to assure stability or resolution. Mild biapical pleural thickening and scarring Moderate degenerative changes and scoliosis in the spine. Reported By:
[2018-08-30 12:08] VITALS: BP 161/74
[2018-08-30] MEDS ORDERED: XANAX PO PRN (14:04)
[2018-08-30] MEDS ORDERED: OLMESARTAN HYDROCHLOROTHIAZIDE PO SCH (14:15)
[2018-08-31] MEDS ORDERED: MICRO K EXTEN CAP 10 MEQ PO SCH (09:00)
[2018-08-31] MEDS ORDERED: SYNTHROID 50 mcg TAB PO SCH (09:00)
== END 2018-08-30 18:35 | disposition short-term general hospital (02) ==
LOC: MED/SURG
PROVIDERS: ADMIT Internal Medicine; ATTEND Internal Medicine
DX: R94.31 Abnormal electrocardiogram [ECG] [EKG]; R07.89 Other chest pain; I71.9 Aortic aneurysm of unspecified site, without rupture; I11.9 Hypertensive heart disease without heart failure; R06.02 Shortness of breath; R26.89 Other abnormalities of gait and mobility; J44.9 Chronic obstructive pulmonary disease, unspecified; K21.9 Gastro-esophageal reflux disease without esophagitis
CPT/HCPCS: 36415; 36600; 71010; 71045; 71275; 80053; 80061; 81001; 82550; 82553; 82803; 83735; 84484; 85025; 85610; 85730; 93005; 94760; 96374; 97161; A4216; A4222; C9113; G0378